=== PATIENT | female | born 1995 | race Two or more races ===

== ENCOUNTER 2024-04-19 13:37 | Outpatient (CLI) | payer OTHER ==
[~2024-04-19 13:37] MED LIST: FIORICET 50-301 EACH PO; NABUMETONE500 MG PO; PREDNISONE5 MG/DOSE- PO
== END 2024-04-19 13:38 | disposition home or self-care (01) ==
LOC: PRENATAL 13:37
PROVIDERS: ATTEND Obstetrics & Gynecology Maternal & Fetal Medicine
DX: O35.3XX0 Maternal care for (suspected) damage to fetus from viral disease in mother, not applicable or unspecified (principal); O44.00 Complete placenta previa NOS or without hemorrhage, unspecified trimester; O36.1999 Maternal care for other isoimmunization, unspecified trimester, other fetus; Z3A.19 19 weeks gestation of pregnancy

== ENCOUNTER 2024-07-16 15:29 | Outpatient (CLI) | payer OTHER | END 2024-07-16 15:30 | disposition home or self-care (01) | LOC: PRENATAL 15:29 | PROVIDERS: ATTEND Obstetrics & Gynecology Maternal & Fetal Medicine | DX: O26.849 Uterine size-date discrepancy, unspecified trimester (principal); O36.8199 Decreased fetal movements, unspecified trimester, other fetus; O36.1999 Maternal care for other isoimmunization, unspecified trimester, other fetus; Z3A.31 31 weeks gestation of pregnancy ==

== ENCOUNTER 2024-09-04 07:45 | Inpatient (IN) | payer OTHER ==
[~2024-09-04] VITALS: Ht 154.9 cm; Wt 80.7 kg
[2024-09-04 08:30] LABS: PH,URINE 5.5 (5.0-8.0); URINE APPEARANCE Clear; URINE BILIRRUBIN Negative (NEGATIVE); URINE BLOOD Negative; URINE COLOR Yellow; URINE GLUCOSE Negative (NEGATIVE); URINE KETONE Negative (NEGATIVE); URINE LEUKOCYTE Trace; URINE NITRATE Negative; URINE PROTEIN Negative (NEGATIVE); URINE UROBILINOGEN 0.2 E.U./dl
[2024-09-04] MEDS ORDERED: PRENATAL (08:30)
[2024-09-04 08:34] LABS: URINE BACTERIA 4255.5 uL (0.0-1933); URINE EPITHELIAL CELLS 41.4 uL (0.0-38.8); URINE RBC 8.6 uL (0.0-20.8)
[2024-09-04 08:38] LABS: HEMOGLOBIN 12.5 g/dL (12.0-15.00); MEAN CELL VOLUME 85.2 fL (80.00-100.00); MEAN CORPUSCULAR HEMOGLOBIN 28.9 pg (27.00-32.0); MEAN CORPUSCULAR HGB CONC 33.9 g/dl (32.0-36.0); PLATELET COUNT 173 K/uL (150-450); RED BLOOD COUNT 4.34 M/uL (4.00-6.00); RED CELL DISTRIBUTION WIDTH 14.3 % (11.5-14.5)
[2024-09-04 08:45] LABS: URINE CAST 0.44 uL (0.0-1.40)
[2024-09-04 09:15] LABS: INR 0.94; PARTIAL THROMBOPLASTIN TIME 25.9 SECONDS (22.0-34.0); PROTHROMBIN TIME 10.3 SECONDS (9.0-11.5)
[2024-09-04 10:28] LABS: RH NEGATIVE
[2024-09-05 11:14] VITALS: BP 112/76
[2024-09-05] MEDS ORDERED: CEFOXITIN SODIUM 2,000 MG VIAL IV ONE (14:28)
[2024-09-05] MEDS ORDERED: OXYTOCIN 10 UNITS/ML VIAL ONE ×2 (16:14→22:49)
[2024-09-05] MEDS ORDERED: ERYTHROMYCIN BASE OPHT 1GM EACH TUBE OP ONE (16:14)
[2024-09-05] MEDS ORDERED: KETOROLAC TROMETHAMINE 60 MG VIAL IM STA (19:28)
[2024-09-05] MEDS ORDERED: OXYTOCIN 1,000 ML IV SCH (19:30)
[2024-09-05] MEDS ORDERED: MEPERIDINE HCL/PF 50 MG/ML VIAL IM PRN (19:30)
[2024-09-05] MEDS ORDERED: CHLORHEXIDINE GLUCONATE 120 ML BOTTLE TOP SCH (19:30)
[2024-09-05] MEDS ORDERED: RINGERS SOLUTION,LACTATED 1,000 ML IV SCH (19:30)
[2024-09-05] MEDS ORDERED: KETOROLAC TROMETHAMINE 60 MG VIAL IM ONE (19:30)
[2024-09-05] MEDS ORDERED: PROMETHAZINE HCL 25 MG/ML AMPUL IM PRN (19:30)
[2024-09-05 20:53] LABS: HEMATOCRIT 33.4 % (36.0-45.00); HEMOGLOBIN 11.3 g/dL (12.0-15.00); MEAN CELL VOLUME 85.7 fL (80.00-100.00); MEAN CORPUSCULAR HGB CONC 33.8 g/dl (32.0-36.0); PLATELET COUNT 160 K/uL (150-450); RED BLOOD COUNT 3.89 M/uL (4.00-6.00); RED CELL DISTRIBUTION WIDTH 13.9 % (11.5-14.5)
[2024-09-05] MEDS ORDERED: MORPHINE SULFATE 4 MG/ML VIAL IV ONE ×2 (21:00→22:55)
[2024-09-05] MEDS ORDERED: METHYLERGONOVINE MALEATE 0.2 MG/ML AMPUL IM ONE (23:05)
[2024-09-05] MEDS ORDERED: METHYLERGONOVINE MALEATE 0.2 MG/ML AMPUL ONE (23:09)
[2024-09-05] MEDS ORDERED: PROMETHAZINE HCL 25 MG/ML AMPUL ONE (23:48)
[2024-09-06] MEDS ORDERED: OXYTOCIN 10 UNITS/ML VIAL ONE (01:42)
[2024-09-06 02:41] VITALS: BP 111/74
[2024-09-06 08:00] VITALS: BP 101/58
[2024-09-06] MEDS ORDERED: OxyCODONE HCL/APAP UD (PERCOCET) PO PRN (09:00)
[2024-09-06 12:00] VITALS: BP 105/50
[2024-09-06 16:00] VITALS: BP 96/64
[2024-09-06 20:00] VITALS: BP 99/64
[2024-09-06] MEDS ORDERED: FF) RHO(D) IMMUNE GLOBULIN (POM) IM NR (22:00)
[2024-09-07 00:32] VITALS: BP 103/70
[2024-09-07 08:00] VITALS: BP 102/67
[2024-09-07 15:01] VITALS: BP 104/73
[2024-09-08 00:22] VITALS: BP 118/79
[2024-09-08 08:28] VITALS: BP 104/71
== END 2024-09-08 16:59 | disposition home or self-care (01) | DRG 785 ==
LOC: LDR 09-05 07:45 → O/R 09-05 10:51 → OB/GYN 09-05 10:51 → SEC-K 09-05 19:30 → O/R 09-05 19:31 → OB/GYN 09-05 19:40
PROVIDERS: ADMIT Obstetrics & Gynecology; ATTEND Obstetrics & Gynecology
PROC: 0UB70ZZ Excision of Bilateral Fallopian Tubes, Open Approach (ICD-10-PCS; 2024-09-05)
PROC: 4A1HXCZ Monitoring of Products of Conception, Cardiac Rate, External Approach (ICD-10-PCS; 2024-09-05)
PROC: 10D00Z1 Extraction of Products of Conception, Low, Open Approach (ICD-10-PCS; principal; 2024-09-05 15:45)
DX: O32.1XX0 Maternal care for breech presentation, not applicable or unspecified (principal); O32.9XX0 Maternal care for malpresentation of fetus, unspecified, not applicable or unspecified; Z3A.39 39 weeks gestation of pregnancy; Z37.0 Single live birth; Z30.2 Encounter for sterilization